=== PATIENT | female | born 1975 | race Caucasian/White ===

== ENCOUNTER 2017-01-14 11:33 | Emergency (ER) | payer OTHER ==
[2017-01-14 11:54] LABS: BASO % 0.2 % (0.1-1.2); EOS # 0.1 10_X3_uL (0.0-0.4); EOS % 1.2 % (0.7-5.8); GRAN # 6.8 10_X3_uL (1.6-6.1); GRAN % 65.1 % (34.0-71.1); HEMATOCRIT 43.3 % (34-45); HEMOGLOBIN 14.9 g/dL (11.2-15.7); LYMPH # 2.9 10_X3_uL (1.2-3.7); LYMPH % 28.2 % (19.3-51.7); MEAN CORPUSCULAR HEMOGLOBIN 31.2 pg (27.0-33.0); MEAN CORPUSCULAR HGB CONC 34.4 g/dL (32.0-36.0); MEAN CORPUSCULAR VOLUME 90.6 fL (79-95); MEAN PLATELET VOLUME 10.5 fl (7.5-11.5); MONO # 0.6 10_X3_uL (0.2-0.9); MONO % 5.3 % (4.7-12.5); PLATELET COUNT 236 x10_3/uL (182-369); RED BLOOD COUNT 4.78 x10_6/uL (3.9-5.2); RED CELL DISTRIBUTION WIDTH 13.1 % (11.7-14.4); WHITE BLOOD COUNT 10.4 x10_3/uL (4.0-10.0)
[2017-01-14 12:08] LABS: ALBUMIN 4.3 gm/dL (3.4-5.0); ALKALINE PHOSPHATASE 87 U/L (50-136); ALT/SGPT 38 U/L (3.5-33.9); AST/SGOT 26 U/L (7.04-26.96); BILIRUBIN,TOTAL 0.63 mg/dL (0.0-1.0); BLOOD UREA NITROGEN 7 mg/dL (7-18); CALCIUM 9.1 mg/dL (8.7-10.7); CARBON DIOXIDE 21 mmol/L (21-32); CREATINE KINASE 66 U/L (21-215); CREATININE 0.7 mg/dL (0.6-1.3); GLUCOSE,RANDOM 114 mg/dL (70-99); LIPASE 14 U/L (6.75-60.75); POTASSIUM 3.8 mmol/L (3.5-5.1); SODIUM 136 mmol/L (136-145); TOTAL PROTEIN 7.9 gm/dL (6.4-8.2)
== END 2017-01-14 14:24 | disposition home or self-care (01) ==
LOC: ER 11:33
PROVIDERS: Internal Medicine
DX: R07.9 Chest pain, unspecified (principal); M54.2 Cervicalgia; Z90.49 Acquired absence of other specified parts of digestive tract; F17.210 Nicotine dependence, cigarettes, uncomplicated; Z88.5 Allergy status to narcotic agent
CPT/HCPCS: 36415; 71010; 80053; 82550; 82553; 83690; 85025; 93005; 96374; 99070; 99285-25